=== PATIENT | male | born 1940 | race Hispanic/Latino ===

== ENCOUNTER 2016-10-17 13:54 | Inpatient (IN) | payer SELFPAY ==
[~2016-10-17] VITALS: Ht 165.1 cm; Wt 87.3 kg
[2016-10-17 16:07] LABS: HEMATOCRIT 38.8 % (38.0-50.0); MCHC 32.5 G/DL (30.0-36.0); MCV 89.4 FL (86-99); MEAN PLAT.VOLUME 9.7 uM^3 (9.0-12.4); PLATELET COUNT 178 K/uL (156-360); RED BLOOD COUNT 4.34 M/uL (4.00-5.50)
[2016-10-17 16:17] LABS: CHLORIDE 103 mEq/L (99-109); POTASSIUM 4.2 mEq/L (3.7-5.4); SODIUM 134 mEq/L (136-147)
[2016-10-17 16:19] LABS: GLUCOSE 113 mg/dL (70-99)
[2016-10-17 16:20] LABS: ANION GAP 10 MEQ/L (2-14)
[2016-10-17 16:21] LABS: TOTAL BILIRUBIN 0.8 mg/dL (0.0-1.0)
[2016-10-17 16:22] LABS: ALKALINE PHOSPHATASE 63 IU/L (3-129); GFR ESTIMATE (CALCULATED) 48 mL/min/
[2016-10-17 16:24] LABS: UREA NITROGEN (BUN) 29 mg/dL (9-23)
[2016-10-17 20:11] VITALS: BP 102/65
[2016-10-17 23:03] VITALS: BP 106/64
[2016-10-18 06:46] VITALS: BP 95/61
[2016-10-18 07:51] LABS: ANION GAP 9 MEQ/L (2-14); CHLORIDE 107 MEQ/L (99-109); GFR ESTIMATE (CALCULATED) > 59 mL/min/; GLUCOSE 112 mg/dL (70-99); SAMPLE HEMOLYSIS CHECK 0; SAMPLE ICTERIC CHECK 0; SAMPLE LIPEMIA CHECK 0; SODIUM 137 MEQ/L (136-147); UREA NITROGEN (BUN) 20 mg/dL (9-23)
[2016-10-18 08:14] LABS: EOSINOPHIL (%) 0.1 % (0-5); HEMATOCRIT 34.4 % (38.0-50.0); IMMATURE GRANULOCYTE COUNT 0.1 K/uL; INSTRUMENT ABS NEUTROPHIL CT 10.1 K/uL; LYMPHOCYTE COUNT 0.9 K/uL (1.0-2.8); MCH 29.5 PG (29.0-34.0); MCHC 32.8 G/DL (30.0-36.0); MCV 89.8 FL (86-99); MEAN PLAT.VOLUME 10.9 uM^3 (9.0-12.4); MONOCYTE (%) 3.8 % (3-12); MONOCYTE COUNT 0.4 K/uL (0-0.8); NEUTROPHIL (%) 87.1 % (45-76); NEUTROPHIL COUNT 10.1 K/uL (1.8-6.4); PLATELET COUNT 158 K/uL (156-360); RBC DIS.WIDTH-SD 48.9 % (39-53); RED BLOOD COUNT 3.83 M/uL (4.00-5.50)
[2016-10-18 08:23] LABS: WHITE BLOOD COUNT 11.6 K/uL (4.1-10.2)
[2016-10-18 15:02] VITALS: BP 154/81
[2016-10-18 23:46] VITALS: BP 115/65
[2016-10-19 06:42] VITALS: BP 131/79
[2016-10-19 14:55] VITALS: BP 157/82
[2016-10-20 08:01] VITALS: BP 132/86
[2016-10-20 16:24] VITALS: BP 144/91
[2016-10-20 22:37] VITALS: BP 109/71
[2016-10-21 08:03] VITALS: BP 140/85
[2016-10-21] MEDS ORDERED: NICOTINE PATCH1 EAC2 TD (08:27)
[2016-10-21] MEDS ORDERED: FAMOTIDINE20 MG PO (08:27)
[2016-10-21] MEDS ORDERED: CEPHALEXIN500 MG PO (08:27)
[2016-10-21] MEDS ORDERED: TRIAMCINOLONE A15 G2 TP (08:27)
== END 2016-10-21 10:58 | disposition home or self-care (01) | DRG 603 ==
LOC: EME 13:54 → 5EAST 17:36 → EDOF 17:36 → 5EAST 19:46
PROVIDERS: Emergency Medicine; Internal Medicine
DX: L03.115 Cellulitis of right lower limb (principal); N17.9 Acute kidney failure, unspecified; J84.10 Pulmonary fibrosis, unspecified; L23.7 Allergic contact dermatitis due to plants, except food; E87.1 Hypo-osmolality and hyponatremia; I87.2 Venous insufficiency (chronic) (peripheral); R73.9 Hyperglycemia, unspecified; F17.200 Nicotine dependence, unspecified, uncomplicated; Z71.6 Tobacco abuse counseling
CPT/HCPCS: 71020; 71250; 80048; 80053; 83605; 85025; 85027; 85651; 87040; 93005; 93971; 94640; 94640 76; 99202; 99281; 99285; J0295; J0696; J1644; J1940; J3010; J3370; J7030; J7050; S0028; S0039